=== PATIENT | male | born 1965 | race Caucasian/White ===

== ENCOUNTER 2022-03-27 12:39 | Outpatient (CLI) | payer BC, SELFPAY | END 2022-03-27 12:40 | disposition home or self-care (01) | LOC: OP CLINIC 12:39 | PROVIDERS: PCP Family Medicine; Visit Provider Surgery | DX: Z12.11 Encounter for screening for malignant neoplasm of colon (principal); K63.5 Polyp of colon; Z86.010 Personal history of colon polyps | CPT/HCPCS: 45385; 88302; 88305; 99153; J1200; J2250; J3010 ==